=== PATIENT | male | born 1990 | race Caucasian/White ===

== ENCOUNTER 2021-01-14 10:05 | Emergency (ER) | payer MEDICAID ==
[~2021-01-14] VITALS: Ht 185.4 cm; Wt 79.4 kg
--- NOTE | 2021-01-14 10:28 | NUR ---
30 years old male alert, oriented x4 presents to er with cp placed on alarm security or surveillance monitor vital stable no acute distress awaiting for er Md evaluation.
[2021-01-14 10:45] LABS: BASOPHILS # (AUTO) 0.1 K/uL (0.0-0.2); BASOPHILS % (AUTO) 2.4 % (0.0-2.0); EOSINOPHILS % (AUTO) 1.6 % (0.0-6.0); HEMATOCRIT 42 % (39-51); HEMOGLOBIN 14.1 g/dL (13.5-17.5); LYMPHOCYTES # (AUTO) 1.1 K/uL (0.8-4.8); LYMPHOCYTES % (AUTO) 46.4 % (20.0-44.0); MEAN CORPUSCULAR HGB CONC 33 g/dl (31.0-36.0); MEAN CORPUSCULAR VOLUME 95 fL (80-96); MONOCYTES # (AUTO) 0.3 K/uL (0.1-1.30); MONOCYTES % (AUTO) 12.5 % (2.0-12.0); NEUTROPHILS # (AUTO) 0.9 K/uL (1.8-8.9); NEUTROPHILS % (AUTO) 37.1 % (43.0-81.0); PLATELET COUNT (AUTO) 238 K/uL (150-450); RED BLOOD CELL COUNT(AUTO) 4.42 MIL/uL (4.5-6.0); WHITE BLOOD COUNT (AUTO) 2.5 K/uL (4.3-11.0)
[2021-01-14] MEDS ORDERED: ASPIRIN 81 MG TAB.CHEW ONE (10:50)
[2021-01-14 11:00] LABS: CALCIUM, SERUM 8.3 mg/dL (8.5-10.1); CARBON DIOXIDE 29 mmol/L (21-32); CHLORIDE 109 mmol/L (98-107); CREATININE 1.1 mg/dL (0.6-1.3); GLUCOSE 92 mg/dL (74-106); POTASSIUM 4.6 mmol/L (3.5-5.1); SODIUM SERUM 145 mmol/L (136-145); UREA NITROGEN, BLOOD 10 mg/dL (7-18)
[2021-01-14] MEDS ORDERED: ASPIRIN 81 MG TAB.CHEW PO ONE (11:00)
[2021-01-14 12:02] LABS: D-DIMER 0.19 mg/L(FEU (0.17-0.50)
--- NOTE | 2021-01-14 12:13 | NUR ---
CARDIO CALLED DR. CERVANTES [phone]
[2021-01-14 12:21] LABS: EOSINOPHILS % (MANUAL) 2 % (0-4); LYMPHOCYTES % (MANUAL) 49 % (16-48); MONOCYTES % (MANUAL) 12 % (0-11.0); NEUTROPHILS % (MANUAL) 37 (42-76)
[2021-01-14] MEDS ORDERED: IBUP-1957 PO (12:34)
[2021-01-14 12:41] VITALS: BP 126/70
--- NOTE | 2021-01-14 12:48 | NUR ---
patient condition stable d/c home with instructions after care reviewed understood.left er via self with prescription alert, oriented x4, no sob, no cp.
[2021-01-14 13:11] LABS: CREATINE KINASE, TOTAL 148 U/L (39-308); FERRITIN 71 ng/mL (8-388)
[2021-01-14 13:12] LABS: C-REACTIVE PROTEIN < 0.2 mg/dL (0.0-0.9)
== END 2021-01-14 12:50 | disposition home or self-care (01) ==
LOC: ER 10:08
DX: I30.1 Infective pericarditis (principal)
CPT/HCPCS: 36415; 71045-TC; 80048-TC; 82550-TC; 82728-TC; 83605-TC; 83615-TC; 83880; 84484-TC; 85025-TC; 85378-TC; 85385-TC; 86140-TC; 87040-TC

== ENCOUNTER 2021-11-10 12:26 | Emergency (ER) | payer MEDICAID, OTHER ==
[~2021-11-10] VITALS: Ht 182.9 cm; Wt 79.4 kg
[~2021-11-10 12:26] MED LIST: IBUP-1957 PO
[2021-11-10 12:50] VITALS: BP 129/70
--- NOTE | 2021-11-10 12:50 | NUR ---
BIBS C/O LEFT MIDDLE FINGER LACERATION S/P BITTEN BY A FRIEND'S DOG, NOT UPDATED WITH TETANUS SHOT. PT REFUSING TETANUS SHOT, X RAY, STATED HE ONLY WANTS IT CLEANED AND WRAPPED.
[2021-11-10] MEDS ORDERED: ACETAMINOPHEN ES 500 MG TABLET ONE (13:14)
[2021-11-10] MEDS: ACETAMINOPHEN ES 500 MG TABLET PO ONE (13:16)
[2021-11-10] MEDS ORDERED: AMOX-430 PO (13:20)
--- NOTE | 2021-11-10 13:36 | NUR ---
Patient discharged to home in stable condition. Written and verbal after care instructions given. Patient verbalizes understanding of instruction.
== END 2021-11-10 13:37 | disposition home or self-care (01) ==
LOC: ER 12:26
DX: S61.253A Open bite of left middle finger without damage to nail, initial encounter (principal); Z79.899 Other long term (current) drug therapy; W54.0XXA Bitten by dog, initial encounter; Y93.89 Activity, other specified; Y92.89 Other specified places as the place of occurrence of the external cause; Y99.8 Other external cause status